=== PATIENT | female | born 1975 | race Caucasian/White ===

== ENCOUNTER 2019-04-30 11:28 | Emergency (ER) | payer OTHER ==
[~2019-04-30] VITALS: Ht 155.6 cm; Wt 86.2 kg
[2019-04-30] MEDS ORDERED: ACETAMINOPHEN 500 MG TAB (TYLENOL) PO STA (11:50)
[2019-04-30 12:03] LABS: BASOPHILS % (AUTO) 0 % (0-10); EOSINOPHILS # (AUTO) 0.1 10^3/uL (0.0-0.3); EOSINOPHILS % (AUTO) 1 % (0-10); HEMATOCRIT 42 % (35-52); HEMOGLOBIN 14.2 G/DL (11.5-16.0); LYMPHOCYTES # (AUTO) 1.9 X 10^3 (1.0-4.0); LYMPHOCYTES % (AUTO) 26 % (12-44); MEAN CORPUSCULAR HEMOGLOBIN 30 PG (25-34); MEAN CORPUSCULAR HGB CONC 34 G/DL (32-36); MEAN CORPUSCULAR VOLUME 88 FL (80-99); MEAN PLATELET VOLUME 10.1 FL (7.4-10.4); MONOCYTES # (AUTO) 0.7 X 10^3 (0.0-1.0); MONOCYTES % (AUTO) 10 % (0-12); NEUTROPHILS # (AUTO) 4.6 X 10^3 (1.8-7.8); NEUTROPHILS % (AUTO) 62 % (42-75); PLATELET COUNT 301 10^3/uL (130-400); RED CELL DISTRIBUTION WIDTH 14.5 % (10.0-14.5); WHITE BLOOD COUNT 7.4 10^3/uL (4.3-11.0)
[2019-04-30 12:04] LABS: BILIRUBIN,URINE NEGATIVE (NEGATIVE); CLARITY,URINE CLEAR; COLOR,URINE YELLOW; GLUCOSE, URINE (UA) NEGATIVE (NEGATIVE); KETONES,URINE NEGATIVE (NEGATIVE); LEUKOCYTE ESTERASE ,URINE NEGATIVE (NEGATIVE); NITRITE,URINE NEGATIVE (NEGATIVE); PH,URINE 7 (5-9); PROTEIN,URINE NEGATIVE (NEGATIVE); UROBILINOGEN,URINE NORMAL (NORMAL)
[2019-04-30 12:18] LABS: BACTERIA,URINE FEW /HPF; SQUAMOUS EPITHELIAL CELL,UR 0-2 /HPF
--- NOTE | 2019-04-30 12:20 | ED Abdominal Pain ---
General Stated Complaint: PELVIC PAIN Source of Information: Patient Exam Limitations: No Limitations History of Present Illness Date Seen by Provider: Apr 30, 2019 Time Seen by Provider: 11:44 Initial Comments Here with report of left lower quadrant abdominal pain that has been intermittent over the last couple months but much worse over the last several days. Does have Mirena IUD and is worried about that it may have migrated. She got that about 3 years ago. Has been having spotting over the last couple of months which is abnormal. Denies vaginal discharge otherwise. Denies dysuria or problems with bowel movements. Pain is worsened over the last few days. Denies nausea or vomiting. She has taken 2 Aleve at 10 AM and that hasn't helped significantly Timing/Duration: 1 Week, Getting Worse Severity/Quality: Moderate, Severe Location: LLQ Radiation: Back Activities at Onset: None Modifying Factors: Worsens With Movement; Improves With Resting Associated Symptoms: Back Pain; No Chest Pain, No Fever/Chills, No Nausea/Vomiting, No Swelling/Mass in Abdomen, No Weakness Allergies and Home Medications Allergies Coded Allergies: Penicillins (Verified Allergy, Unknown, 04/30/19) Patient Home Medication List Home Medication List Reviewed: Yes Review of Systems Review of Systems Constitutional: see HPI; No chills, No fever Respiratory: No Symptoms Reported Cardiovascular: No Symptoms Reported Gastrointestinal: See HPI Genitourinary: See HPI Musculoskeletal: see HPI Skin: no symptoms reported All Other Systems Reviewed Negative Unless Noted: Yes Past Ozphyml-Ufseqk-Fgxust Hx Past Med/Social Hx: Reviewed Nursing Past Med/Soc Hx Patient Social History Alcohol Use: Denies Use Recreational Drug Use: No Smoking Status: Never a Smoker Recent Foreign Travel: No Contact w/Someone Who Travel: No Past Medical History Surgeries: Yes Abdominal (gastric bypass), Section Respiratory: No Cardiac: No Neurological: No : No Gastrointestinal: Yes Family Medical History Reviewed and Corrections made No Pertinent Family Hx Physical Exam Vital Signs Vital Signs - First Documented 04/30/19 11:38 Temp 97.8 Pulse 81 Resp 15 B/P (MAP) 132/90 (104) Pulse Ox 98 O2 Delivery Room Air Capillary Refill : Height/Weight/BMI Height: '" Weight: lbs. oz. kg; BMI Method: General Appearance: WD/WN, mild distress HEENT: PERRL/EOMI, pharynx normal Neck: full range of motion, supple Respiratory: lungs clear, normal breath sounds Cardiovascular: regular rate, rhythm, no murmur Gastrointestinal: soft; No guarding, No rebound; tenderness (left lower quadrant) Extremities: non-tender, normal inspection Back: normal inspection, no CVA tenderness, no vertebral tenderness Neurologic/Psychiatric: alert, oriented x 3 Skin: normal color, warm/dry Progress/Results/Core Measures Results/Orders Lab Results Laboratory Tests Test 04/30/19 11:40 04/30/19 11:55 04/30/19 14:27 Range/Units Urine Test NEGATIVE NEGATIVE White Blood Count 7.4 4.3-11.0 10^3/uL Red Blood Count 4.79 4.35-5.85 10^6/uL Hemoglobin 14.2 11.5-16.0 G/DL Hematocrit 42 35-52 % Mean Corpuscular Volume 88 80-99 FL Mean Corpuscular Hemoglobin 30 25-34 PG Mean Corpuscular Hemoglobin Concent 34 32-36 G/DL Red Cell Distribution Width 14.5 10.0-14.5 % Platelet Count 301 130-400 10^3/uL Mean Platelet Volume 10.1 7.4-10.4 FL Neutrophils (%) (Auto) 62 42-75 % Lymphocytes (%) (Auto) 26 12-44 % Monocytes (%) (Auto) 10 0-12 % Eosinophils (%) (Auto) 1 0-10 % Basophils (%) (Auto) 0 0-10 % Neutrophils # (Auto) 4.6 1.8-7.8 X 10^3 Lymphocytes # (Auto) 1.9 1.0-4.0 X 10^3 Monocytes # (Auto) 0.7 0.0-1.0 X 10^3 Eosinophils # (Auto) 0.1 0.0-0.3 10^3/uL Basophils # (Auto) 0.0 0.0-0.1 10^3/uL Urine Color YELLOW Urine Clarity CLEAR Urine pH 7 5-9 Urine Specific [place] 1.005 L 1.016-1.022 Urine Protein NEGATIVE NEGATIVE Urine Glucose (UA) NEGATIVE NEGATIVE Urine Ketones NEGATIVE NEGATIVE Urine Nitrite NEGATIVE NEGATIVE Urine Bilirubin NEGATIVE NEGATIVE Urine Urobilinogen NORMAL NORMAL MG/DL Urine Leukocyte Esterase NEGATIVE NEGATIVE Urine RBC (Auto) 5+ H NEGATIVE Urine RBC NONE /HPF Urine WBC NONE /HPF Urine Squamous Epithelial Cells 0-2 /HPF Urine Crystals NONE /LPF Urine Bacteria FEW H /HPF Urine Casts NONE /LPF Urine Mucus NEGATIVE /LPF Urine Culture Indicated NO Sodium Level 140 135-145 MMOL/L Potassium Level 4.0 3.6-5.0 MMOL/L Chloride Level 107 98-107 MMOL/L Carbon Dioxide Level 24 21-32 MMOL/L Anion Gap 9 5-14 MMOL/L Blood Urea Nitrogen 9 7-18 MG/DL Creatinine 0.88 0.60-1.30 MG/DL Estimat Glomerular Filtration Rate > 60 BUN/Creatinine Ratio 10 Glucose Level 92 70-105 MG/DL Calcium Level 9.8 8.5-10.1 MG/DL Corrected Calcium 8.5-10.1 MG/DL Total Bilirubin 0.4 0.1-1.0 MG/DL Aspartate Amino Transf (AST/SGOT) 17 5-34 U/L Alanine Aminotransferase (ALT/SGPT) 17 0-55 U/L Alkaline Phosphatase 87 40-136 U/L C-Reactive Protein High Sensitivity 0.43 0.00-0.50 MG/DL Total Protein 7.7 6.4-8.2 GM/DL Albumin 4.7 H 3.2-4.5 GM/DL Micro Results Microbiology 04/30/19 Genital Culture, Resulted Pending 04/30/19 Wet Prep - Final, Resulted My Orders Orders - GÉNESIS FIGUEREDO MD Cbc With Automated Diff (04/30/19 11:50) Comprehensive Metabolic Panel (04/30/19 11:50) Hs C Reactive Protein (04/30/19 11:50) Ua Culture If Indicated (04/30/19 11:50) Acetaminophen Tablet (Tylenol Tablet) (04/30/19 11:50) Us Non Ob Transvaginal [id number] (04/30/19 11:54) Wet Prep (04/30/19 13:10) Neisseria Gonorrhea Swab (04/30/19 13:10) Genital Culture (04/30/19 13:10) Chlamydia Trachomatis Swab (04/30/19 13:10) Ct Abdomen/Pelvis W (04/30/19 13:10) Ns Iv 1000 Ml (Sodium Chloride 0.9%) (04/30/19 13:10) Hcg,Qualitative Urine (04/30/19 13:18) Iohexol Injection (Omnipaque 350 Mg/Ml 1 (04/30/19 13:45) Received Contrast (Hold Metformin- Contr (04/30/19 13:45) Ns (Ivpb) (Sodium Chloride 0.9% Ivpb Bag (04/30/19 13:45) Medications Given in ED Current Medications Medications Dose Ordered Sig/Beatrice Route Start Time Stop Time Status Last Admin Dose Admin Iohexol 100 ml ONCE ONCE IV 04/30/19 13:45 04/30/19 13:52 DC 04/30/19 14:05 100 ML Sodium Chloride 100 ml ONCE ONCE IV 04/30/19 13:45 04/30/19 13:52 DC 04/30/19 14:05 80 ML Sodium Chloride 1,000 ml @ 0 mls/hr Q0M ONCE IV 04/30/19 13:10 04/30/19 13:12 DC 04/30/19 13:22 1,000 MLS/HR Vital Signs/I&O 04/30/19 11:38 Temp 97.8 Pulse 81 Resp 15 B/P (MAP) 132/90 (104) Pulse Ox 98 O2 Delivery Room Air Progress Progress Note : Progress Note Seen and evaluated. IV, labs, UA and pelvic ultrasound ordered. Acetaminophen 1000 mg by mouth given. Monitor patient. Ultrasound does not show significant acute findings. CT abdomen and pelvis and pelvic exam ordered. Monitor patient. 1450: Pelvic exam complete and pending wet prep results. CT does not show acute findings although there is scattered diverticula in the area of pain. Findings of thickening of the gastric sleeve is likely chronic as patient has no pain in that area. Pain is on the left lower quadrant. Monitor patient. 1600: Bacterial vaginosis noted. There are a few white cells as well. Cipro and Flagyl prescribed. Discharged home with return precautions. Patient verbalize understanding instructions and agreement with plan. We will also treat for possible reticulitis given the area of pain. This is discussed with the patient who agrees. Diagnostic Imaging Diagonstic Imaging: Ultrasound Plain Films/CT/US/NM/MRI: pelvis Comments [facility] [place], [place] NAME: MAMI CAMARENA [facility] REC#: [id number] PT STATUS: REG ER : 1975 PHYSICIAN: GÉNESIS FIGUEREDO MD ADMIT DATE: 04/30/19/ER Draft Date of Exam:04/30/19 US NON OB TRANSVAGINAL [id number] REASON FOR EXAM: IUD for three years, bleeding and pain, left-sided pelvic pain. COMPARISON: None. TECHNIQUE: Transvaginal sonogram was performed. FINDINGS: The uterus is retroflexed and within normal limits in size. There are no focal uterine masses. The endometrium and the intrauterine device is difficult to evaluate due to uterine positioning, but the device does appear to be in expected position. The endometrial thickness measures 5 mm. The cervix is visualized and is unremarkable. The right ovary measures 3.3 x 2.5 x 1.7 cm, and is normal in appearance. The left ovary is not seen. There is normal flow to the right ovary. No adnexal masses are identified. There is no free fluid in the cul-de-sac. IMPRESSION: 1. No focal uterine masses. 2. No adnexal masses. Normal appearing ovaries. Dictated on workstation # [id number] Dict: 04/30/19 1322 Trans: 04/30/19 1334 [facility] [id number] Interpreted by: JULIO LEIVA MD Electronically signed by: Diagonstic Imaging: CT Plain Films/CT/US/NM/MRI: abdomen, pelvis Comments [facility] [place] [place] NAME: MAMI CAMARENA [facility] REC#: [id number] PT STATUS: REG ER : 1975 PHYSICIAN: GÉNESIS FIGUEREDO MD ADMIT DATE: 04/30/19/ER Draft Date of Exam:04/30/19 CT ABDOMEN/PELVIS W PROCEDURE: CT abdomen and pelvis with contrast. TECHNIQUE: Multiple contiguous axial images were obtained through the abdomen and pelvis after administration of intravenous contrast. Auto Exposure Controls were utilized during the CT exam to meet ALARA standards for radiation dose reduction. INDICATION: Worsening left lower quadrant abdominal pain. COMPARISON: None. FINDINGS: LOWER THORAX: Lung bases are clear. Visualized heart is normal in size. LIVER: A coarse calcified granuloma is demonstrated in the left hepatic lobe. The liver is otherwise normal. GALLBLADDER: Normal CT appearance. BILE DUCTS: No biliary ductal dilatation. SPLEEN: Normal. PANCREAS: Normal. No pancreatic ductal dilatation. ADRENAL GLANDS: No nodules. RIGHT KIDNEY AND URETER: No hydronephrosis. Normal renal enhancement. No suspicious mass. The ureter is normal. LEFT KIDNEY AND URETER: No hydronephrosis. Normal renal enhancement. No suspicious mass. The ureter is normal. STOMACH AND BOWEL: The patient is status post gastric sleeve surgery. There is suggestion of mild circumferential thickening in the gastric antrum. No bowel obstruction. No bowel wall thickening. Few tiny scattered diverticula are demonstrated in the sigmoid colon. There is no evidence of acute diverticulitis. APPENDIX: Normal. PELVIC ORGANS/BLADDER: Bladder is normal. Uterus is normal in CT appearance with intrauterine contraceptive device in place. No adnexal mass. PERITONEUM AND RETROPERITONEUM: No pneumoperitoneum. No abdominal free fluid or loculated collection. LYMPH NODES: No lymphadenopathy. VESSELS: Abdominal aorta is nonaneurysmal. No venous thrombosis. ABDOMINAL WALL: Unremarkable. BONES: No acute abnormality. IMPRESSION: There is suggestion of mild circumferential thickening involving the gastric antrum. This may be secondary to underdistention, however, these findings can be seen in gastritis. Alternatively, this may be a chronic finding, related to prior gastric sleeve surgery. Otherwise, no acute abdominal or pelvic pathology is demonstrated. Dictated on workstation # [id number] Dict: 04/30/19 1423 Trans: 04/30/19 1432 [facility] [id number] Interpreted by: DYANA PALM DO Electronically signed by: Departure Impression Primary Impression: Bacterial vaginosis Additional Impression: Diverticulitis Disposition: HOME, SELF-CARE Condition: Improved Departure-Patient Inst. Decision time for Depature: 16:01 Referrals: GLENDA BOONE DO (PCP/Family) Primary Care Physician Patient Instructions: Acute Abdomen (Belly Pain), Adult (DC), Bacterial Vaginosis, Diverticulitis Add. Discharge Instructions: Take medications as directed. You may take Tylenol/acetaminophen 1000 mg every 8 hours as needed for pain. You may take the Aleve 2 tablets twice daily as needed for pain. Drink plenty of fluids. Follow-up with your DrSallie in a few days for recheck. Return for worse pain, fever, vomiting, weakness, breathing problems or other concerns as needed. Scripts Metronidazole (Metronidazole) 500 Mg Tablet 500 MG PO BID, #14 TAB 0 Refills Prov: GÉNESIS FIGUEREDO MD 04/30/19 Ciprofloxacin HCl (Ciprofloxacin HCl) 500 Mg Tablet 500 MG PO BID, #14 TAB Prov: GÉNESIS FIGUEREDO MD 04/30/19 GÉNESIS FIGUEREDO MD Apr 30, 2019 12:20
[2019-04-30 12:22] LABS: ALANINE AMINOTRANSFERASE 17 U/L (0-55); ALBUMIN 4.7 GM/DL (3.2-4.5); ALKALINE PHOSPHATASE 87 U/L (40-136); BILIRUBIN,TOTAL 0.4 MG/DL (0.1-1.0); BUN/CREATININE RATIO 10; CALCIUM 9.8 MG/DL (8.5-10.1); CARBON DIOXIDE 24 MMOL/L (21-32); CHLORIDE 107 MMOL/L (98-107); CREATININE SERUM 0.88 MG/DL (0.60-1.30); GFR ESTIMATED > 60; GLUCOSE 92 MG/DL (70-105); SODIUM 140 MMOL/L (135-145); TOTAL PROTEIN 7.7 GM/DL (6.4-8.2)
[2019-04-30] MEDS ORDERED: NS IV 1000 ML 1,000 ML IV ONE (13:10)
--- NOTE | 2019-04-30 13:35 | Diagnostic Imaging Report ---
REASON FOR EXAM: IUD for three years, bleeding and pain, left-sided pelvic pain. COMPARISON: None. TECHNIQUE: Transvaginal sonogram was performed. FINDINGS: The uterus is retroflexed and within normal limits in size. There are no focal uterine masses. The endometrium and the intrauterine device is difficult to evaluate due to uterine positioning, but the device does appear to be in expected position. The endometrial thickness measures 5 mm. The cervix is visualized and is unremarkable. The right ovary measures 3.3 x 2.5 x 1.7 cm, and is normal in appearance. The left ovary is not seen. There is normal flow to the right ovary. No adnexal masses are identified. There is no free fluid in the cul-de-sac. IMPRESSION: 1. No focal uterine masses. 2. No adnexal masses. Normal appearing ovaries. Dictated by: Dictated on workstation # [id number]
[2019-04-30] MEDS ORDERED: NS 100 ML (IVPB) BAG IV ONE (13:45)
[2019-04-30] MEDS ORDERED: IOHEXOL 350 MG/ML 100 ML (OMNIPAQUE 350) VIAL IV ONE (13:45)
[2019-04-30] MEDS ORDERED: HOLD METFORMIN - RECEIVED CONTRAST 20 ML VIAL IV SCH (13:45)
--- NOTE | 2019-04-30 14:33 | Diagnostic Imaging Report ---
PROCEDURE: CT abdomen and pelvis with contrast. TECHNIQUE: Multiple contiguous axial images were obtained through the abdomen and pelvis after administration of intravenous contrast. Auto Exposure Controls were utilized during the CT exam to meet ALARA standards for radiation dose reduction. INDICATION: Worsening left lower quadrant abdominal pain. COMPARISON: None. FINDINGS: LOWER THORAX: Lung bases are clear. Visualized heart is normal in size. LIVER: A coarse calcified granuloma is demonstrated in the left hepatic lobe. The liver is otherwise normal. GALLBLADDER: Normal CT appearance. BILE DUCTS: No biliary ductal dilatation. SPLEEN: Normal. PANCREAS: Normal. No pancreatic ductal dilatation. ADRENAL GLANDS: No nodules. RIGHT KIDNEY AND URETER: No hydronephrosis. Normal renal enhancement. No suspicious mass. The ureter is normal. LEFT KIDNEY AND URETER: No hydronephrosis. Normal renal enhancement. No suspicious mass. The ureter is normal. STOMACH AND BOWEL: The patient is status post gastric sleeve surgery. There is suggestion of mild circumferential thickening in the gastric antrum. No bowel obstruction. No bowel wall thickening. Few tiny scattered diverticula are demonstrated in the sigmoid colon. There is no evidence of acute diverticulitis. APPENDIX: Normal. PELVIC ORGANS/BLADDER: Bladder is normal. Uterus is normal in CT appearance with intrauterine contraceptive device in place. No adnexal mass. PERITONEUM AND RETROPERITONEUM: No pneumoperitoneum. No abdominal free fluid or loculated collection. LYMPH NODES: No lymphadenopathy. VESSELS: Abdominal aorta is nonaneurysmal. No venous thrombosis. ABDOMINAL WALL: Unremarkable. BONES: No acute abnormality. IMPRESSION: There is suggestion of mild circumferential thickening involving the gastric antrum. This may be secondary to underdistention, however, gastritis may have a similar appearance. Alternatively, this may be a chronic finding, related to prior gastric sleeve surgery. Otherwise, no acute abdominal or pelvic pathology is demonstrated. Dictated by: Dictated on workstation # [id number]
[2019-04-30] MEDS ORDERED: METR-145 PO (16:02)
[2019-04-30] MEDS ORDERED: CIPR500T4 PO (16:02)
[2019-04-30 16:15] VITALS: BP 149/84
== END 2019-04-30 16:23 | disposition home or self-care (01) ==
LOC: ER 11:30
DX: N76.0 Acute vaginitis (principal); B96.89 Other specified bacterial agents as the cause of diseases classified elsewhere; K57.92 Diverticulitis of intestine, part unspecified, without perforation or abscess without bleeding; Z88.0 Allergy status to penicillin; Z97.5 Presence of (intrauterine) contraceptive device; Z98.890 Other specified postprocedural states; Z98.84 Bariatric surgery status
CPT/HCPCS: 36415; 74177; 76830; 80053; 81000; 84703; 85025; 86141; 87070; 87077; 87205; 87210; 87491; 87591; 96360

== ENCOUNTER 2023-06-13 21:39 | Emergency (ER) | payer OTHER ==
[~2023-06-13] VITALS: Ht 154.9 cm; Wt 92.9 kg
[~2023-06-13 21:39] MED LIST: CIPR500T5 PO; METR-145 PO
[2023-06-13] MEDS ORDERED: fentaNYL INJ 100 MCG/2 ML AMP IVP STA (21:52)
[2023-06-13] MEDS ORDERED: NS IV 1000 ML 1,000 ML IV STA (21:54)
--- NOTE | 2023-06-13 21:58 | ED Abdominal Pain ---
General Chief Complaint: Abdominal/GI Problems Stated Complaint: UPPER ABD PAIN Nursing Triage Note: PT ARRIVED POV WITH CC OF STABBING ABD PAIN AND NAUSEA THAT STARTED SATURDAY. PT WAS SEEN YESTERDAY AT [facility] AND WAS SCHEDULED FOR AN ULTRASOUND TOMORROW. PT ATE A SANDWICH AT 1900 AND HAD AN INCREASE IN PAIN. NAPROXEN WAS TAKEN AT 2100 AND PEPTOL AT 2000. Source of Information: Patient Exam Limitations: No Limitations (FRANCESCA TYLER) History of Present Illness Date Seen by Provider: Jun 13, 2023 Time Seen by Provider: 21:55 Initial Comments SaturdayPatient is a 48-year-old female who presents to ED with upper abdominal pain. Pain started after she ate a salad on saturday. Sharp stabbing pain without radiation. She felt nausea without vomiting. The pain appears intermittent since Saturday and seems to be worse after she eats. She did eat a salad yesterday as well started having pain again in the same location and went to [facility] with lab work that was unremarkable according to patient. She has a scheduled outpatient ultrasound for tomorrow. This pain became worse this evening after eating a sandwich. Pain is also described as burning that radiates up into the chest. Nausea without vomiting. No diarrhea. History of gastroparesis in 2011. History of . Denies of any urinary symptoms. Denies of any known cardiac history. She denies of any current shortness of breath, cough, fever, chills, body aches, dysuria headache or dizziness. Patient in mild to moderate distress on arrival. She did take naproxen and Pepto this evening after the pain started without much improvement. (FRANCESCA TYLER) Allergies and Home Medications Allergies Coded Allergies: Penicillins (Verified Allergy, Unknown, 04/30/19) Patient Home Medication List Home Medication List Reviewed: Yes (FRANCESCA TYLER) Ciprofloxacin HCl (Ciprofloxacin HCl) 500 Mg Tablet, 500 MG PO BID Prescribed by: GÉNESIS FIGUEREDO on 04/30/19 160 Metronidazole (Metronidazole) 500 Mg Tablet, 500 MG PO BID Prescribed by: GÉNESIS FIGUEREDO on 04/30/19 1602 Review of Systems Review of Systems Constitutional: No chills, No diaphoresis, No malaise, No weakness EENTM: No Eye Pain Respiratory: Denies Cough, Denies Orthopnea Cardiovascular: Chest Pain Gastrointestinal: Abdominal Pain; Denies Diarrhea; Nausea; Denies Vomiting Genitourinary: Denies Burning, Denies Discharge, Denies Drainage, Denies Frequency Musculoskeletal: No back pain, No joint pain Skin: No change in color, No change in hair/nails (FRANCESCA TYLER) All Other Systems Reviewed Negative Unless Noted: Yes (FRANCESCA TYLER) Past Nppojff-Xgnqsj-Qaohep Hx Patient Social History Tobacco Use?: No Substance use?: Yes Substance type: Marijuana Alcohol Use?: No (FRANCESCA TYLER) Past Medical History Surgery/Hospitalization HX: gastric bypass surgery 2011 Surgeries: Yes Abdominal, Section Respiratory: No Cardiac: No Neurological: No Genitourinary: No Gastrointestinal: Yes Musculoskeletal: No Endocrine: No HEENT: No Cancer: No Psychosocial: No Blood Disorders: No (FRANCESCA TYLER) Family Medical History No Pertinent Family Hx (FRANCESCA TYLER) Physical Exam Vital Signs Vital Signs - First Documented 06/13/23 06/14/23 21:44 00:47 Temp 36.6 Pulse 84 Resp 16 B/P (MAP) 153/92 (112) Pulse Ox 98 O2 Delivery Room Air (ROBERT,JETHRO K DO) Vital Signs Capillary Refill : (FRANCESCA TYLER) Height/Weight/BMI Height: 5'1.25" Weight: 190lbs. oz. 86.039597dp; 38.00 BMI Method:Stated General Appearance: WD/WN, no apparent distress HEENT: PERRL/EOMI, normal ENT inspection, TMs normal, pharynx normal Neck: non-tender, full range of motion, supple Respiratory: chest non-tender, lungs clear, normal breath sounds, no respiratory distress, no accessory muscle use Cardiovascular: regular rate, rhythm, no edema, no gallop, no JVD Gastrointestinal: normal bowel sounds, soft, no organomegaly, no pulsatile mass, tenderness (Epigastric tenderness, right upper quadrant tenderness. Normal bowel sounds throughout. 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, no motor/sensory deficits, alert, normal mood/affect, oriented x 3 Skin: normal color (FRANCESCA TYLER) Progress/Results/Core Measures Results/Orders Lab Results Laboratory Tests Test 06/13/23 21:52 06/14/23 00:36 06/14/23 00:52 Range/Units White Blood Count 13.7 H 4.3-11.0 10^3/uL Red Blood Count 4.70 3.80-5.11 10^6/uL Hemoglobin 13.5 11.5-16.0 g/dL Hematocrit 40 35-52 % Mean Corpuscular Volume 85 80-99 fL Mean Corpuscular Hemoglobin 29 25-34 pg Mean Corpuscular Hemoglobin Concent 34 32-36 g/dL Red Cell Distribution Width 14.2 10.0-14.5 % Platelet Count 381 130-400 10^3/uL Mean Platelet Volume 10.1 9.0-12.2 fL Immature Granulocyte % (Auto) 0 % Neutrophils (%) (Auto) 59 42-75 % Lymphocytes (%) (Auto) 34 12-44 % Monocytes (%) (Auto) 5 0-12 % Eosinophils (%) (Auto) 1 0-10 % Basophils (%) (Auto) 0 0-10 % Neutrophils # (Auto) 8.1 H 1.8-7.8 10^3/uL Lymphocytes # (Auto) 4.6 H 1.0-4.0 10^3/uL Monocytes # (Auto) 0.7 0.0-1.0 10^3/uL Eosinophils # (Auto) 0.1 0.0-0.3 10^3/uL Basophils # (Auto) 0.0 0.0-0.1 10^3/uL Immature Granulocyte # (Auto) 0.1 0.0-0.1 10^3/uL Sodium Level 138 135-145 MMOL/L Potassium Level 3.9 3.6-5.0 MMOL/L Chloride Level 104 98-107 MMOL/L Carbon Dioxide Level 20 L 21-32 MMOL/L Anion Gap 14 5-14 MMOL/L Blood Urea Nitrogen 13 7-18 MG/DL Creatinine 0.87 0.60-1.30 MG/DL Estimat Glomerular Filtration Rate 83 BUN/Creatinine Ratio 15 Glucose Level 117 H 70-105 MG/DL Calcium Level 10.1 8.5-10.1 MG/DL Corrected Calcium 10.0 8.5-10.1 MG/DL Total Bilirubin 0.4 0.1-1.0 MG/DL Aspartate Amino Transf (AST/SGOT) 83 H 5-34 U/L Alanine Aminotransferase (ALT/SGPT) 66 H 0-55 U/L Alkaline Phosphatase 140 H 40-136 U/L Troponin I < 0.028 <0.028 NG/ML C-Reactive Protein High Sensitivity 0.84 H 0.00-0.50 MG/DL Total Protein 7.3 6.4-8.2 GM/DL Albumin 4.1 3.2-4.5 GM/DL Amylase Level 2686 H 25-125 U/L Lipase 94258 H 8-78 U/L Erythrocyte Sedimentation Rate 32 H 0-20 MM/HR Urine Color YELLOW Urine Clarity CLEAR Urine pH 6.0 5-9 Urine Specific [place] <=1.005 1.016-1.022 Urine Protein NEGATIVE NEGATIVE Urine Glucose (UA) NEGATIVE NEGATIVE Urine Ketones NEGATIVE NEGATIVE Urine Nitrite NEGATIVE NEGATIVE Urine Bilirubin NEGATIVE NEGATIVE Urine Urobilinogen 0.2 < = 1.0 MG/DL Urine Leukocyte Esterase NEGATIVE NEGATIVE Urine RBC (Auto) 3+ H NEGATIVE Urine RBC 5-10 H /HPF Urine WBC NONE /HPF Urine Squamous Epithelial Cells RARE /HPF Urine Crystals NONE /LPF Urine Bacteria TRACE /HPF Urine Casts NONE /LPF Urine Mucus NEGATIVE /LPF Urine Culture Indicated NO (JETHRO DUMONT DO) My Orders Orders - JETHRO DUMONT DO Amylase (06/14/23 00:25) Hs C Reactive Protein (06/14/23 00:25) Erythrocyte Sedimentation Rate (06/14/23 00:25) Fentanyl Inj (Sublimaze Injection) (06/14/23 00:45) Cefepime Injection (Maxipime Injection) (06/14/23 00:45) Metronidazole 500mg/100ml Ivpb (Flagyl 5 (06/14/23 00:45) Ed Iv/Invasive Line Start (06/14/23 00:47) Lactated Ringers (Lr 1000 Ml Iv Solution (06/14/23 01:00) (JETHRO DUMONT DO) Vital Signs/I&O 06/13/23 06/14/23 06/14/23 21:44 00:47 03:25 Temp 36.6 36.9 Pulse 84 82 64 Resp 16 19 B/P (MAP) 153/92 (112) 107/63 (78) 96/57 Pulse Ox 98 98 94 O2 Delivery Room Air Room Air Room Air (ROBERTJETHRO Babatunde HUNTER) Blood Pressure Mean: 112 Progress Progress Note : Progress Note 2300--ASSUMED CARE OF PT FROM Lenny TYLER, CT RESULTS PENDING. PT IS RESTING COMFORTABLY AT THIS TIME. VITALS ARE STABLE DISCUSSED TEST RESULTS, NEED FOR TRANSFER AND PT IS AGREEABLE TO PLAN NO DETERIORATION IN PT'S CONDITION DURING ER STAY (JETHRO DUMONT DO) Comment Sinus rhythm, low QRS voltage in pericardial leads, Q waves in V1 V2, 72 bpm, QRS duration 86 MS, QTc 422 MS. (FRANCESCA TYLER) Diagnostic Imaging Comments CT ABDOMEN / PELVIS--PER STAT RAD VIA FAX AT 0022 -OBSTRUCTING CHOLEDOCHOLITHIASIS AND PANCREATITIS. -NEW INTRAHEPATIC AND EXTRAHEPATIC BILIARY DUCTAL DILATION. -5 MM CALCIFIED STONE IN THE DISTAL CBD -PERIPANCREATIC EDEMA. NO EVIDENCE OF NECROSIS Reviewed: Reviewed by Me (JETHRO DUMONT DO) Departure Communication (Admissions) 0025--SPOKE WITH DR. ESPARZA, SURGEON, ADVISES TRANSFER TO HIGHER LEVEL OF CARE WITH GI AND ERCP CAPABILITIES. 0042--CALLED EARLY, NO BEDS 0043--CALLED [facility] TRANSFER LINE. BOTH CHARISSA AND [facility] ARE ON GI/ERCP DIV ERSION 0046--CALLED [facility]. IMAGES CLOUDED TO THEM 0203--[facility] CALLED BACK. PT HAS BEEN ACCEPTED BY DR. BUSH. ER STAFF NOW CALLING TO ARRANGE FOR TRANSFER. NO LOCAL OR AREA GROUND EMS SERVICES ARE AVAILABLE FOR TRANSFER. 0315--[facility] IS HERE TO TRANSPORT PT (JETHRO DUMONT DO) Communication (PCP) Reviewed previous ER visits, H&P, lab testing . differential diagnosis of acute cholecystitis, gastritis, choledocholithiasis, biliary colic, ACS. 48-year-old female with upper abdominal pain since Saturday. This occurs after she eats. This became worse this evening with nausea. No vomiting. No known cardiac history. Due to current presentation CBC, CMP, lipase, troponin EKG with CT abdomen pelvis. Patient was given a dose of fentanyl. Zofran for nausea. Started on liter of fluid. Pain improved. CBC 13. Elevated liver enzymes. Lipase pending. Normal troponin. EKG unremarkable without evidence of ST elevation or depression. CT abdomen and pelvis is currently pending. Currently NPO. Patient was discussed with Dr. Dumont who took over care at 11 PM. (FRANCESCA TYLER) Impression Primary Impression: Choledocholithiasis with acute cholecystitis with obstruction Additional Impression: Acute gallstone pancreatitis Disposition: 02 XFER SHT-TRM HOSP Condition: Improved Transfer Transfer Reason: Exceeds level of care (NEED FOR GI SERVICES UNAVAILABLE HERE) Transfer Facility: [facility] Method of Transfer: Air (JETHRO DUMONT DO) Departure-Patient Inst. Referrals: [facility] (PCP/Family) Primary Care Physician FRANCESCA TYLER Jun 13, 2023 21:58 JETHRO DUMONT DO Jun 16, 2023 05:04
[2023-06-13] MEDS ORDERED: ONDANSETRON 4 MG/2 ML (SDV) Z0FRAN IVP ONE (22:00)
[2023-06-13 22:08] LABS: BASOPHILS % (AUTO) 0 % (0-10); EOSINOPHILS # (AUTO) 0.1 10^3/uL (0.0-0.3); EOSINOPHILS % (AUTO) 1 % (0-10); HEMATOCRIT 40 % (35-52); HEMOGLOBIN 13.5 g/dL (11.5-16.0); LYMPHOCYTES # (AUTO) 4.6 10^3/uL (1.0-4.0); LYMPHOCYTES % (AUTO) 34 % (12-44); MEAN CORPUSCULAR HEMOGLOBIN 29 pg (25-34); MEAN CORPUSCULAR HGB CONC 34 g/dL (32-36); MEAN CORPUSCULAR VOLUME 85 fL (80-99); MEAN PLATELET VOLUME 10.1 fL (9.0-12.2); MONOCYTES # (AUTO) 0.7 10^3/uL (0.0-1.0); MONOCYTES % (AUTO) 5 % (0-12); NEUTROPHILS # (AUTO) 8.1 10^3/uL (1.8-7.8); NEUTROPHILS % (AUTO) 59 % (42-75); PLATELET COUNT 381 10^3/uL (130-400); WHITE BLOOD COUNT 13.7 10^3/uL (4.3-11.0)
[2023-06-13 22:09] LABS: ALBUMIN 4.1 GM/DL (3.2-4.5); CHLORIDE 104 MMOL/L (98-107); POTASSIUM 3.9 MMOL/L (3.6-5.0); SODIUM 138 MMOL/L (135-145)
[2023-06-13 22:10] LABS: CALCIUM 10.1 MG/DL (8.5-10.1)
[2023-06-13 22:11] LABS: GLUCOSE 117 MG/DL (70-105); TOTAL PROTEIN 7.3 GM/DL (6.4-8.2)
[2023-06-13 22:12] LABS: CARBON DIOXIDE 20 MMOL/L (21-32)
[2023-06-13 22:13] LABS: BILIRUBIN,TOTAL 0.4 MG/DL (0.1-1.0)
[2023-06-13 22:15] LABS: ALKALINE PHOSPHATASE 140 U/L (40-136); CREATININE SERUM 0.87 MG/DL (0.60-1.30); GFR ESTIMATED 83
[2023-06-13 22:16] LABS: BUN/CREATININE RATIO 15
[2023-06-13 22:18] LABS: ALANINE AMINOTRANSFERASE 66 U/L (0-55)
[2023-06-13] MEDS ORDERED: HOLD METFORMIN - RECEIVED CONTRAST 20 ML VIAL IV SCH (23:30)
[2023-06-13] MEDS ORDERED: IOHEXOL 350 MG/ML 100 ML (OMNIPAQUE 350) VIAL IV ONE (23:30)
[2023-06-13] MEDS ORDERED: CATHETER FLUSH 10 ML SYR IV PRN (23:30)
[2023-06-13] MEDS ORDERED: NS 100 ML (IVPB) BAG IV ONE (23:30)
[2023-06-14 00:25] LABS: LIPASE 13978 U/L (8-78)
[2023-06-14] MEDS ORDERED: metroNIDAZOLE 500MG/100ML IVPB 100 ML IV ONE (00:45)
[2023-06-14] MEDS ORDERED: fentaNYL INJ 100 MCG/2 ML AMP IVP ONE (00:45)
[2023-06-14] MEDS ORDERED: CEFEPIME INJECTION 1,000 MG in NS (IVPB) 50 ML 50 ML IV ONE (00:45)
[2023-06-14 00:57] LABS: BILIRUBIN,URINE NEGATIVE (NEGATIVE); CLARITY,URINE CLEAR; COLOR,URINE YELLOW; GLUCOSE, URINE (UA) NEGATIVE (NEGATIVE); KETONES,URINE NEGATIVE (NEGATIVE); LEUKOCYTE ESTERASE ,URINE NEGATIVE (NEGATIVE); NITRITE,URINE NEGATIVE (NEGATIVE); PROTEIN,URINE NEGATIVE (NEGATIVE)
[2023-06-14] MEDS ORDERED: LACTATED RINGERS 1,000 ML IV ONE (01:00)
[2023-06-14 01:09] LABS: BACTERIA,URINE TRACE /HPF; SQUAMOUS EPITHELIAL CELL,UR RARE /HPF
[2023-06-14 03:25] VITALS: BP 96/57
--- NOTE | 2023-06-14 09:26 | Diagnostic Imaging Report ---
PROCEDURE: CT abdomen and pelvis with contrast. TECHNIQUE: Multiple contiguous axial images were obtained through the abdomen and pelvis after administration of intravenous contrast. Auto Exposure Controls were utilized during the CT exam to meet ALARA standards for radiation dose reduction. All CT scans use one or more of the following dose optimizing techniques: automated exposure control, MA and/or KvP adjustment based on patient size and exam type or iterative reconstruction. INDICATION: Thoracoabdominal pain, nausea Compared with CT abdomen pelvis 04/30/2019. There is a 6.5 mm calculus within the distal common bile duct at the level of the pancreatic head resulting in mild upstream intra and extrahepatic bile duct dilatation consistent with at least partially obstructing choledocholithiasis. There is some mild stranding of the peripancreatic fat and peripancreatic edema consistent with mild associated acute pancreatitis. No findings of parenchymal abscess or necrosis. No pseudocyst or other acute fluid collection. Vasculature was patent. The spleen unremarkable. Kidneys unobstructed. There is no ileus or bowel obstruction. No gastric outlet obstruction. There is noninflamed diverticular disease of the sigmoid colon. The appendix normal. The uterus and adnexa normal. IMPRESSION: Biliary dilatation owing to choledocholithiasis with associated mild acute pancreatitis without pseudocyst, ascites or necrosis. The remaining abdominal pelvic solid and hollow viscera were nonacute. I agree with preliminary. Dictated by: Dictated on workstation # [id number]
== END 2023-06-14 03:25 | disposition short-term general hospital (02) ==
LOC: EDUNIT# 21:39 → ER 21:41
DX: K80.63 Calculus of gallbladder and bile duct with acute cholecystitis with obstruction (principal); K85.10 Biliary acute pancreatitis without necrosis or infection; Z98.84 Bariatric surgery status
CPT/HCPCS: 36415; 74177; 80053; 81000; 82150; 83690; 84484; 85025; 85652; 86141; 93005